=== PATIENT | female | born 2000 | race Caucasian/White ===

== ENCOUNTER → 2019-05-08 | Outpatient (CLI) | payer BC ==
--- NOTE | 2019-05-09 07:55 | RAD ---
EXAM: KUB CLINICAL HISTORY: ABD PAIN COMPARISON STUDY: None. TECHNICAL: KUB FINDINGS: Non-obstructive gas pattern. The bony structures are grossly normal. No abnormal calcifications. An IUD is seen in the central pelvis. IMPRESSION: NO ACUTE ABNORMALITY IDENTIFIED. Electronically signed by: Solis Mandujano MD 05/09/2019 7:53 AM CDT
== END ==
LOC: LAB.O 17:44
PROVIDERS: ATTEND Nurse Practitioner Family
DX: R10.84 Generalized abdominal pain (principal)